=== PATIENT | male | born 2005 | race Caucasian/White ===

== ENCOUNTER 2025-07-27 23:31 | Emergency (ER) | payer OTHER ==
[~2025-07-27] VITALS: Ht 182.9 cm; Wt 70.0 kg
[2025-07-27] MEDS ORDERED: IBUPROFEN 600 MG TAB PO ONE (23:45)
[2025-07-28 00:13] VITALS: BP 132/82
== END 2025-07-28 00:13 | disposition home or self-care (01) ==
LOC: ED 23:31
DX: S63.502A Unspecified sprain of left wrist, initial encounter (principal); W01.0XXA Fall on same level from slipping, tripping and stumbling without subsequent striking against object, initial encounter
CPT/HCPCS: 73110; 99283; A9270